=== PATIENT | female | born 1950 | race Caucasian/White ===

== ENCOUNTER 2024-08-25 08:51 | Inpatient (IN) | payer MEDICARE, OTHER, SELFPAY ==
[2024-08-13 08:38] VITALS: BMI 31.0
[2024-08-25] VITALS (12 sets, daily range): BP systolic 89–141; BP diastolic 44–73; PULSE 76–84; RESP 11–18; TEMP 35.6–36.6; O2SAT 94–98; BMI 31.0
--- NOTE | 2024-08-25 | DI.RAD.S_ITS ---
PROCEDURE: XR HIP W PEL IF DONE RT 4V INDICATIONS: RT HIP REVISION TECHNIQUE: 4 fluoroscopic spot images of the pelvis and right hip COMPARISON: None. FINDINGS: Bones: Patient is status post right hip arthroplasty, with hardware components in expected positions. The hip joint appears congruent. The visualized bony structures appear intact. Soft tissues: Overlying postoperative changes are noted. No suspicious soft tissue densities. IMPRESSION: Expected post-operative appearance of a hip arthroplasty. Dictated by: Gordy Kenny M.D. on 08/25/2024 at 22:30 Approved by: Gordy Kenny M.D. on 08/25/2024 at 22:31
--- NOTE | 2024-08-25 | PATH_ITS ---
[facility] Accession Number: [id number] No. of containers..01 Tissue . 01 Material submitted: . hip - RIGHT HIP CAPSULE . 01 Diagnosis: RIGHT HIP CAPSULE, EXCISION: Fragments of fibroconnective tissue with mild chronic inflammation, focal acute inflammation, fibrosis, degenerative changes, occasional hemosiderin-laden macrophages, and reactive/regenerative changes. Negative for atypia or malignancy. MRV 08/27/2024 1815 Local . 01 Electronically signed: . Hilton Nixon MD, Pathologist NPI- [id number] . 01 Gross description: . Received in formalin with two patient identifiers and right hip capsule, are multiple irregular watkins membranous soft tissue fragments, 3.0 x 2.9 x 1.3 cm in aggregate. Sectioning reveals a watkins, rubbery cut surface. Food Product Inspector sections are submitted in A1. ([id number]) /MRV 08/26/2024 1653 Local . 01 Pathologist provided ICD-10: T84.030A . 01 CPT . 125171 Specimen Comment: A courtesy copy of this report has been sent to [facility] Pathology Performed at: [address] [address], [place], [place] [id number] MD Kedar Aparicio MD Phone: [phone]
--- NOTE | 2024-08-25 06:00 | DI.RAD.S_ITS ---
PROCEDURE: XR HIP W PEL IF DONE RT 2V INDICATIONS: yoko TECHNIQUE: AP pelvis and lateral view of the hip acquired. COMPARISON: [facility], CR, XR HIP W PEL IF DONE RT 4V, 08/25/2024, 12:47. FINDINGS: Bones: Patient is status post right hip arthroplasty, with hardware components in expected positions. The hip joint appears congruent. The visualized bony structures appear intact. Hardware within the left hip noted status post total hip arthroplasty without evidence of complication. Soft tissues: Overlying postoperative changes are noted. No suspicious soft tissue densities. IMPRESSION: Expected post-operative appearance of a hip arthroplasty. Dictated by: Gordy Kenny M.D. on 08/25/2024 at 22:42 Approved by: Gordy Kenny M.D. on 08/25/2024 at 22:43
[2024-08-25] MEDS: MELOXICAM 7.5 MG TABLET PO (09:36)
[2024-08-25] MEDS: ACETAMINOPHEN 325 MG TABLET 975 MG PO (09:36)
[2024-08-25] MEDS: LACTATED RINGERS 1,000 ML 42 ML IV ×3 (09:37→15:23)
--- NOTE | 2024-08-25 09:54 | PM.PREOP ---
Pre-operative Note Interval Note History & Physical reviewed/Exam performed by Physician: Yes Changes to H&P: No
[2024-08-25] MEDS: TRANEXAMIC ACID 1,000 MG VIAL 2000 MG INJ ×2 (11:14→15:17)
[2024-08-25] MEDS: CEFAZOLIN 2 GM/100 ML PREMIX 100 ML IV ×3 (11:15→21:23)
--- NOTE | 2024-08-25 11:43 | SUR.OPER ---
Supine on padded [place] table with bilateral legs secured in padded positioning boots and suspended in positioning spars, operative leg in traction per surgeon. Head on one pillow. Arm on non-operative side secured on padded armboard <90 degrees abduction. Arm on operative side padded and resting across chest then secured with tape over sheet. Padded perineal post in place per surgeon.
[2024-08-25] MEDS: VANCOMYCIN 1,000 MG VIAL 1000 MG INTRA-ARTI (14:08)
[2024-08-25] MEDS: GENTAMICIN 240 MG in SODIUM CHLORIDE 0.9% 100 ML 106 MG TOP (14:09)
[2024-08-25] MEDS: ROPIVACAINE/EPI/CLONIDINE/KET 50 ML SYRINGE INJ (15:06)
--- NOTE | 2024-08-25 15:21 | P.OP_ITS ---
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 Right total hip arthroplasty revision with acetabular component exchange in femoral stem retention Same procedure as scheduled: Yes Surgeon: Reymundo Galvez Yeast Culture Operator: Danna Aponte Anesthesia Type: General and Local Operative Notes Estimated Blood Loss (mL): 450 Procedure in detail: Laterality Uncemented Direct Anterior Depuy Total Hip Arthroplasty: Implants: * Mono G7 acetabular cup with 40 mm, 25 mm, 30 mm screws * Size G 46 mm Dual Mobility acetabular liner * 28 mm/46 mm Dual Mobility polyethylene * 28 mm +0 ceramic femoral head?with Titanium sleeve Procedure Summary: This 73-year-old female patient was referred to me by an outside orthopedic surgeon for acetabular bone loss behind the acetabular component of a total hip arthroplasty placed in 2013. She had an MRI showing a fluid collection around the hip and prior to seeing me had had a hip aspiration which came back with no growth on cultures and no organisms on Gram stain. I obtained inflammatory markers which were elevated at an ESR of 63 and a CRP of 14.9. Given the elevated inflammatory markers I attempted a repeat aspiration. This was attempted both radiographically and under ultrasound and both attempts were nicholas ble to obtain any fluid. 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 To evaluate this I obtained metal ion levels which were elevated with a chromium of 2.7 and a cobalt of 2.8. Being unable to obtain fluid for culture despite my repeated attempts I discussed with the patient that her acetabular component clearly warranted exchange and she was symptomatic from it but that I could not definitively say whether this would be a revision for periprosthetic joint infection or for trunnionosis. I therefore recommended a hybrid approach between an aseptic revision and a septic revision. Specifically, should cultures return positive during today's procedure I took the following measures 2 attempts to prevent recurrent infection as much as I could. Specifically: 1. I used a double set up and removed all dirty instruments from the surgical field prior to implanting any definitive components 2. I placed antibiotic laden calcium sulfate pellets in the hip capsule to provide high concentrations of antibiotics. 3. I will have the patient remain in the hospital receiving IV cefazolin until culture result so that if they do result positive I can have a PICC line placed during this admission and arrange for outpatient IV antibiotics With regards to the possibility that was not dealing with infection today in the this was in factor in by trunnionosis as evidenced by the elevated metal ion levels in the use of a cobalt chromium head during the prior surgery, I retained the stem during today's surgery. There is some evidence supporting stem retention during treatment of hip periprosthetic joint infections due to the high morbidity associated with stem removal. That references included below. I did debride the accessible portions of the stem using a Bovie scratch pad during today's procedure and vigorously tested the stem to ensure that it was not loose. Aurelio T, Nazia H, Damion Y, Doe T, Harjinder T, Nunu M, Calvin K. Treatment of periprosthetic hip infection with retention of a well-fixed stem: six to 13- year outcomes. Arthroplasty. 2019 Feb 05;1(1):3. doi: 10.1186/[id number]. PMID: [id number]; PMCID: [id number]. 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 There was diffuse inflammatory tissue throughout the entire hip capsule and I removed as much of this as I was feasibly able to. There was some fluid in the hip capsule which did not definitively look like an abscess but I obtained some of this fluid and sent it along with several tissue specimens for culture. I also sent a pathology specimen to evaluate for possible signs of metallosis. After removing the cup I noted erosive changes in the ilium with bone loss surrounding the screw that was in the cup from the primary surgery. There was also bone loss medially with the acetabular poor exposed after cup removal. I performed reaming and mechanical debridement on the dirty side and then utilize a chemical debridement involving irrigation with 3 L of normal saline through pulse lavage followed by a Betadine soak followed by 3 L of normal saline through pulse lavage followed by a peroxide soak followed by 3 additional L of normal saline. The wound was provisionally closed in the room was entirely turned over. I inserted a 60 mm cup, 2 sizes larger than the original cup. Because of anterior bone loss a somewhat vertical position was necessary to achieve an appropriate pinch fit. I utilized a dual mobility liner to maximize stability as the prior construct had utilize an offset liner and been performed through a posterior approach. I upsized the head by 1 and trialed before implantation to ensure appropriate stability and leg lengths. Procedure in Detail: This patient was seen preoperatively and evaluated for hip pain which was refractory to numerous nonoperative treatment modalities. Their hip pain correlated with radiographic changes demonstrating significant degeneration in the hip joint. The risks and benefits of continued nonoperative management versus operative management were discussed at length and all of the patient?s questions were answered. Additional educational materials providing further details beyond our discussion in clinic were provided via a publicly available patient education video which included the incidence of medical complications associated with total hip arthroplasty, reasons for revision following total hip arthroplasty, and patient satisfaction rates following total hip arthroplasty. That video can be accessed at [email or web address] . With this understanding of the risks inherent to the procedure, the patient elected to move forward with operative management. Following preoperative optimization, the patient was scheduled for surgery. The patient was met in the preoperative holding area the day of the procedure and all questions were answered. The patient?s nares were swabbed with betadine in order to decolonize them from MRSA. Informed consent was signed and the laterality limb was marked with indelible ink.? The patient was brought back to the operating room where anesthesia was induced. The patient was transferred to the [place] table and all bony prominences were padded. The operative site was prepped and draped in the usual sterile fashion. Prior to incision, tranexamic acid and cefazolin were administered. Operative templating images were displayed demonstrating the anticipated implant sizes and correct operative extremity. A timeout procedure was performed verifying the patient?s identity, medical comorbidities, allergies, relevant medications, anesthesia type and the surgical plan. All present were in agreement. The assistance of a physician roofer assistant was required for positioning, room setup, soft tissue retraction and wound closure. Without this assistance, the procedure would have been significantly more challenging and time consuming.?? A direct anterior approach to the hip was utilized. This was performed with a longitudinal incision through a Heuter interval. The incision was planned 2 cm distal and 2 cm lateral to the ASIS extending towards the lateral patella, in line with the muscle body of the TFL. Following incision, the subcutaneous tissue was dissected while taking care to avoid injury to the lateral femoral cutaneous nerve. The fascia overlying the TFL was identified by dissecting off the overlying fat and identifying perforating vessels to the TFL. The TFL fascia was incised and dissected away from the medial border of the TFL. A cobra retractor was placed over the superior femoral neck between the abductors and the hip capsule and used to reflect the TFL laterally. A [place] self-retainer was then placed in the distal aspect of the wound between the TFL and the rectus femoris. This was tensioned to open up the direct anterior interval and the lateral circumflex vessels were identified and coagulated using electrocautery. The floor of the TFL fascia was incised, exposing the pericapsular fat overlying the hip capsule. A second cobra retractor was placed on the inferior femoral neck. A double-bent soft tissue retractor was placed on the anterior wall of the acetabulum and used to tension the reflected head of rectus femoris, which was then released in order to limit soft tissue tension. A capsulotomy was made in the midline of the anterior hip capsule in line with the femoral neck ending at the vastus tubercle. The double-bent retractor was removed in order to limit the amount of time that a soft tissue retractor remained on the anterior wall and protect the femoral nerve. Retractors were placed on the superior and inferior aspects of the prosthetic femoral neck and abundant inflammatory tissue within the hip capsule was noted. I also noted the black discoloration on the trunnion. Removed as much hip capsule as I could in order to debride the area. I sent multiple specimens for culture as well as 1 for pathology to look for evidence of metallosis. I also found a small amount of fluid within the hip capsule and sampled this with a syringe which I also sent for culture. After extensive mechanical debridement of all inflammatory appearing tissue exposed the acetabular component and used the traction table to apply traction to the leg. I impacted the femoral head into the polyethylene to disengaged from the Victor taper and dislocated the hip and then removed the femoral head. Inspection revealed that it was as anticipated a-3 cobalt chromium head. I then removed the polyethylene liner using a pair of osteotomes and removed a single screw. I then used a cup out device to free the cup from the surrounding bone. There was significant bone loss superior laterally but elsewhere it remained well fixed. Noted there was minimal bone remaining attached to the cup after was eventually loosened and removed. Inspection of the acetabulum revealed inflammatory appearing tissue in the area of the bony defect. I sampled this and sent it for culture. That defect was contained. The floor of the acetabular fossa was exposed in the anterior wall was very thin. I initially reamed with a 57 Reamer and then eval uated this fluoroscopically and noted that there was still some room remaining to go up in size so I inserted a 59 Reamer which fit easily into the joint. I therefore planned to utilize a size sixty cup on the clean side. Prior to moving to the clean side brought the hip into hyperextension and adduction and vigorously tested the stem to ensure that it was not loose. It was not loose. I mechanically debrided the exposed portions of the stem using a Bovie pad. There was significant trunnion [place] debris which was removed in this process. I also removed inflammatory tissue from around the femur. I then returned to neutral hip extension and in extensive chemical debridement was undertaken involving 3 L of normal saline interspersed with separate 3 minute soaks of Betadine and peroxide. The wound was provisionally closed and all surgical instruments and dressings were removed from the room. New instruments were brought up, the operating room was cleaned and turned over, and the entire surgical team re-prepped and redraped. Now on the clean side the provisional sutures were removed and the hip was again chemically debrided with a mixture of Betadine and peroxide and copiously irrigated. I replaced the trunnion posterior and lateral to the acetabulum and used pulse lavage to clean the acetabulum. I then introduced the size 60 multi hole cup and positioned it in an appropriate position fluoroscopically. Because of the erosive bony changes particularly to the anterior wall there was minimal pinch fit. I obtained an appropriate position fluoroscopically and then very lightly tapped it into place. I initially attempted to place a screw but this loosen the cup and after repeating the process was able to get the cup to seat long enough to get a screw in place which extended up the ilium. I also placed a 2nd screw in the ilium and an inferior screw extending down towards the ischium. I attempted to place a more medial screw but was not able to obtain any good purchase there and likewise was unable to obtain appropriate purchase with other screw holes which extended up the ilium. I initially had a more medially directed screw in place but fluoroscopic imaging indicated that it was extending out of bone and so that 1 was removed. I placed a dual mobility liner and impacted into place and ensured that it was circumferentially flush. I placed a dual mobility head for a size 0 head on the trunnion and reduced this into the hip joint. Initial trialing was performed with the retained stem and a 28+ 0 head. I initially manually externally rotated the hip and found no instability. I then locked the hip in 45 degrees of external rotation and dropped it to the floor with traction off which demonstrated no instability. An AP pelvis fluoroscopic image matching the preoperative standing radiograph with both lesser trochanters visible and both hips in 40 degrees of external rotation demonstrated equal leg length compared to the other side. AP and lateral hip fluoroscopic images were obtained to evaluate the broach size which demonstrated no obvious signs of loosening of the stem. The hip was dislocated and I returned to the broaching position. Based on my evaluation during initial trialing I planned to place this definitive head. The definitive stem was placed and the trunnion was cleaned and dried. I placed a ceramic head onto the trunnion and impacted it into place on the Victor taper.?? All retractors were removed and the hip was reduced. A dilute mixture of betadine and peroxide was used to bathe the soft tissues during final fluoro scopic assessment. Appropriate component positioning was confirmed on an AP pelvis radiograph with the operative and nonoperative legs in 40 degrees of external rotation, evaluating leg length and offset. Appropriate stem fill was evaluated on AP and lateral hip radiographs. No fractures were identified on these radiographs. There was no hip instability with maximum (115?) external rotation as well as a 45 degree drop test. The hip was copiously irrigated with pulse lavage. Calcium sulfate pellets containing vancomycin and gentamicin were placed inside the capsule. The capsule was closed with absorbable interrupted suture. The TFL fascia was closed with barbed suture while carefully protecting the lateral femoral cutaneous nerve from entrapment. A mixture of Ropivacaine, Epinephrine, Clonidine and Toradol was infiltrated throughout the soft tissues. The skin was closed with 2- 0 and 3-0 sutures. Surgical glue was applied and a soft dressing was placed.??The sponge, instrument and needle counts were reported as being correct at the end of the case.??No obvious complications occurred. The patient was transferred from the [place] table back to a stretcher. The patient emerged from an esthesia without difficulty and was taken to the PACU in a stable condition.? Plan for aftercare: * Anterior hip precautions * Weightbearing as tolerated * Aspirin 81 twice per day for DVT prophylaxis * Cefazolin 2 mg every 8 hours while the patient remained in the hospital * Follow cultures and remain in the hospital until they result so she will be admitted as an inpatient * Anticipate discharge home after cultures result * Multimodal pain regimen with no IV opioids ordered * Apply ice machine to operative hip. Ensure that sufficient ice is in the chamber for the pad to remain cold * Follow up at [facility] in 2 weeks * Detailed postoperative instructions available at [email or web address]
[2024-08-25 16:36] LABS: Add Manual Diff / Slide Review NO; Basophils Absolute Auto 0 /uL (0-100); Basophils Percent Auto 0.1 % (0-2); Eosinophils Absolute Auto 0 /uL (0-450); Hematocrit 25.9 % (36-46); Hemoglobin 8.1 g/dL (12.0-16.0); Lymphocytes Absolute Auto 1200 /uL (1100-4500); Lymphocytes Percent Auto 5.3 % (25-40); Mean Corpuscular HGB Conc 31.3 % (30-36); Mean Corpuscular Hemoglobin 26.9 PG (26-34); Mean Corpuscular Volume 85.8 fL (80-100); Monocytes Absolute Auto 700 /uL (0-900); Monocytes Percent Auto 3.1 % (3-14); Neutrophils Absolute Auto 20000 /uL (1500-7000); Neutrophils Percent Auto 91.5 % (50-75); Platelet Count 564 X10^3/uL (150-400); Red Blood Cell Count 3.01 X10^6/uL (4.0-5.2); Red Cell Distribution Width 15.7 % (11.6-14.8); White Blood Cell Count 21.9 X10^3/uL (4.5-11.0)
[2024-08-25] MEDS: LACTATED RINGERS 1,000 ML 100 ML IV (18:24)
[2024-08-25] MEDS: IBUPROFEN 600 MG TABLET PO (18:25)
[2024-08-25] MEDS: ACETAMINOPHEN 325 MG TABLET 650 MG PO (18:26)
[2024-08-25] MEDS: ONDANSETRON 4 MG/2 ML INJ IV (18:27)
--- NOTE | 2024-08-25 19:47 | PC.NURSE ---
Patient arrives from PACU at 1705 this evening. She is lethargic but easily awakens VSS, afebrile weaned to RA this evening. She reports feeling slightly nauseated and declines dinner this evening. x1 small episode of emesis. She is given zofran PRN. She denies need for pain medications. Aquacel to R hip C/d/i. Continuous pulse ox, frequent monitoring. She last voided at 1030 a.m.
[2024-08-25] MEDS: ONDANSETRON 4 MG ODT PO (21:22)
[2024-08-25] MEDS: PANTOPRAZOLE DR 20 MG TABLET PO (21:24)
[2024-08-25] MEDS: DOCUSATE 100 MG CAPSULE PO (21:24)
[2024-08-25] MEDS: MAGNESIUM OXIDE 400 MG TABLET PO (21:24)
[2024-08-25] MEDS: ASPIRIN EC 81 MG TABLET PO (21:24)
[2024-08-26] VITALS (12 sets, daily range): BP systolic 96–124; BP diastolic 36–57; PULSE 74–90; RESP 15–18; TEMP 35.8–36.7; O2SAT 96–98
[2024-08-26] MEDS: ONDANSETRON 4 MG ODT PO ×3 (01:29→12:04)
[2024-08-26] MEDS: ACETAMINOPHEN 325 MG TABLET 650 MG PO ×4 (01:29→17:42)
[2024-08-26] MEDS: IBUPROFEN 600 MG TABLET PO ×4 (01:30→17:42)
[2024-08-26] MEDS: CEFAZOLIN 2 GM/100 ML PREMIX 100 ML IV ×2 (05:38→17:43)
[2024-08-26 06:09] LABS: Hematocrit 18.3 % (36-46)
--- NOTE | 2024-08-26 06:54 | PC.NURSE ---
Pt pale and nauseated throughout shift, medicated with zofran (see MAR). Pt up and ambulating standby with FWW to bathroom, pain 3/10 at max. Morning labs called @ 0605 with critical value of H/H of 6.0/18.3 (down from 8.1/25.0 immediately post-op) Charge Nurse Li Spencer and provider Dr. Galvez made aware. Type and Screen ordered, blood consent signed and in chart, and 1 u PRBC ordered.
--- NOTE | 2024-08-26 08:21 | P.PN_ITS ---
Subjective Subjective Date Patient Seen: 08/26/24 Time Patient Seen: 08:21 Interval history: Patient found resting comfortably in bed. States that she has had episodes of vomiting during the night. Patient states that she has had no bowel movement yet. Able to ambulate with assistance to the commode. Says she is frequently constipated due to iron intake. She has not required any oxycodone for pain relief. Patient's pain is controlled with oral medication. ?Pain is localized to surgical site. ?Patient declines any new numbness or tingling at the surgical extremity, but some decreased sensation about surgical site. Has had episodes of light-headedness, nausea, vomiting.?Patient denies any shortness of breath, dizziness, fever or chills. Exam Vital Signs (past 8 hours): - 08/26/24 04:00 Temperature 96.8 F L Pulse Rate 82 Respiratory Rate 18 Blood Pressure 112/47 L Pulse Oximetry 96 Oxygen Flow Rate 2 Oxygen Delivery Method Nasal Cannula Oxygen Flow Rate 2 Narrative Exam Narrative: 5/5 strength in quadriceps, hamstrings, DF, PF, EHL bilaterally. Sensation to light touch intact throughout BLE. Calves soft, compressible, nontender. Dressing placed intraoperatively CDI. SCDs found off Objective Labs 08/26/24 04:40 Labs: Laboratory Results - last 24 hr 08/25/24 08/26/24 08/26/24 16:09 04:40 06:20 WBC 21.9 H RBC 3.01 L Hgb 8.1 L 6.0 L* Hct 25.9 L 18.3 L* MCV 85.8 MCH 26.9 MCHC 31.3 RDW 15.7 H Plt Count 564 H Neut % (Auto) 91.5 H Lymph % (Auto) 5.3 L [place] % (Auto) 3.1 Eos % (Auto) 0.0 L Baso % (Auto) 0.1 Neut # (Auto) 76369 H Lymph # (Auto) 1200 [place] # (Auto) 700 Eos # (Auto) 0 Baso # (Auto) 0 Blood Type O Positive Antibody Screen Negative Crossmatch See Detail [facility] Medical History (Updated 08/26/24 @ 11:56 by Hemal Ding PA-C) Abscess History of cardioversion (2010) A-fib (2010) Schatzki's ring Avascular necrosis Bladder cystocele GERD (gastroesophageal reflux disease) Osteoarthritis Iron (Fe) deficiency anemia Surgical History (Updated 08/13/24 @ 10:50 by Jahaira Bey RN) History of carpal tunnel release of both wrists History of total right knee replacement (2008) History of total left hip arthroplasty (04/2019) Hx of bladder repair surgery Hx of cholecystectomy History of total right hip arthroplasty (12/2013) Social History household members: spouse Smoking Status: Never smoker alcohol intake: current Assessment & Plan Post-op Assessment and plan (1) Anemia: Assessment and Plan narrative: 1) Status post Revision total hip arthroplasty with acetabular component exchange 2) Anemia Postoperative Procedures: Procedures Operation Date: 08/25/24 10:45 Actual Procedure Side Surgeon p Revision total hip arthroplasty with acetabular component exchange Right Reymundo Galvez MD Postoperative day: 1 Postoperative status: doing well and anemia Postoperative status narrative: Hemoglobin [address] Galvez notified by nursing staff. Ordered 1 unit of pRBC. Postoperative plan: routine post-op care and ambulate Postoperative plan narrative: Blood transfusion ordered. Monitor today repeat H&H tomorrow. Anterior hip precautions Weightbearing as tolerated Ambulate with PT when medically appropriate. Aspirin 81 twice per day for DVT prophylaxis SCDs on and running when patient is in bed. Cefazolin 2 mg every 8 hours while the patient remained in the hospital Follow cultures and remain in the hospital until the results are reported. Anticipate discharge home after cultures result Multimodal pain regimen with no IV opioids ordered Apply ice machine to operative hip. Ensure that sufficient ice is in the chamber for the pad to remain cold Follow up at [facility] in 2 weeks Time Spent With Patient Time with patient: 15-24 minutes Quality VTE Deep Vein Thrombosis/Pulmonary Embolism Present on Admission: No
[2024-08-26] MEDS: CHOLECALCIFEROL (VITAMIN D3) 1,000 UNIT TABLET 1000 UNIT PO (09:59)
[2024-08-26] MEDS: PANTOPRAZOLE DR 20 MG TABLET PO ×2 (10:00→21:11)
[2024-08-26] MEDS: DOCUSATE 100 MG CAPSULE PO ×2 (10:00→21:11)
[2024-08-26] MEDS: METOPROLOL ER 25 MG TABLET PO (10:00)
[2024-08-26] MEDS: ASPIRIN EC 81 MG TABLET PO ×2 (10:01→21:12)
[2024-08-26] MEDS: FERROUS SULFATE 325 MG TABLET PO (10:01)
[2024-08-26] MEDS: OXYCODONE IR 5 MG TABLET PO ×2 (10:20→19:03)
--- NOTE | 2024-08-26 10:22 | PM.PN.1 ---
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 PAST SURGICAL HISTORY - Isolated acetabular component exchange performed by me. See operative note for details SUBJECTIVE The patient reports feeling nauseous, which she associates with postoperative anemia. She mentioned that once blood is infused, her nausea typically improves as she has had similar issues in the past. Her pain is well controlled and she has had no acute issues other than the nausea and some prolonged drowsiness postoperatively PHYSICAL EXAM Constitutional: Patient is alert and oriented, engaging in conversation. Musculoskeletal: Post-operative examination of the hip shows good mobility with no shadow drainage. There is a presence of some ecchymosis adjacent to the incision and some swelling. Intact femoral and sciatic nerve function. ASSESSMENT - POD1 from isolated acetabular component exchange PLAN - Follow culture results - Receiving 1 U pRBC for Hgb 6.0. Reevaluate Hgb after transfusion - Continue with nausea/vomitting treatment. Monitor for improvement in nausea with blood transfusion. - WBAT with anterior hip precautions - Continue ancef DISPOSITION To remain in the hospital until cultures result Exam Vital Signs (past 8 hours): - 08/26/24 04:00 08/26/24 08:20 08/26/24 10:00 Temperature 96.8 F L 97 F L Pulse Rate 82 90 Respiratory Rate 18 15 Blood Pressure 112/47 L 108/49 L 108/49 L Pulse Oximetry 96 96 Oxygen Flow Rate 2 Oxygen Delivery Method Nasal Cannula Oxygen Flow Rate 2 Objective Labs 08/26/24 04:40 Labs: Laboratory Results - last 24 hr 08/25/24 08/26/24 08/26/24 16:09 04:40 06:20 WBC 21.9 H RBC 3.01 L Hgb 8.1 L 6.0 L* Hct 25.9 L 18.3 L* MCV 85.8 MCH 26.9 MCHC 31.3 RDW 15.7 H Plt Count 564 H Neut % (Auto) 91.5 H Lymph % (Auto) 5.3 L [place] % (Auto) 3.1 Eos % (Auto) 0.0 L Baso % (Auto) 0.1 Neut # (Auto) 50204 H Lymph # (Auto) 1200 [place] # (Auto) 700 Eos # (Auto) 0 Baso # (Auto) 0 Blood Type O Positive Antibody Screen Negative Crossmatch See Detail [facility] Medical History (Updated 08/13/24 @ 10:50 by Jahaira Bey, RN) Abscess History of cardioversion (2010) A-fib (2010) Schatzki's ring Avascular necrosis Bladder cystocele GERD (gastroesophageal reflux disease) Osteoarthritis Iron (Fe) deficiency anemia Surgical History (Updated 08/13/24 @ 10:50 by Jahaira Bey, RN) History of carpal tunnel release of both wrists History of total right knee replacement (2008) History of total left hip arthroplasty (04/2019) Hx of bladder repair surgery Hx of cholecystectomy History of total right hip arthroplasty (12/2013) Social History household members: spouse Smoking Status: Never smoker alcohol intake: current Assessment & Plan Time-Based Coding :: [TOTAL MINUTES] spent with patient and on the chart (including review of chart, obtaining history, exam, reviewing outside data, placing orders, documenting exam and treatment plan, and counseling patient) on [DATE]. Quality VTE Deep Vein Thrombosis/Pulmonary Embolism Present on Admission: No
--- NOTE | 2024-08-26 11:38 | OT.IPNOTE ---
Hold OT eval, pt to get blood due to low HH.
--- NOTE | 2024-08-26 12:03 | CM.DANOTE ---
Initial DCP Assessment Note Pt is a 73 yo female, resident of [place] , s/p isolated acetabular component exchange by Dr Galvez. PCP: Art Luong Payer: REYNALDO/Arnulfo Reviewed chart, pt discussed in multidisciplinary rounds this morning. Plan is for continued INPT admission in the hospital until culture results return. Patient is ambulating well, H+H is low and patient has received blood transfusion. Therapies will be on hold while H+H is low. Patient lives independently w/sp in [facility], patient is a retired OB nurse. Patient has planned for return home w/sp to assist. Outpatient therapies. CM team will plan to follow clinical course closely in case any DC needs or concerns arise. BLANCO Chance Discharge Planning/Care Management CM Discharge Assessment Start: 08/26/24 12:02 Freq: Status: Active Protocol: Document 08/26/24 12:02 KELLEY (Rec: 08/26/24 12:03 KELLEY [id number]) Discharge Planning Assessment Assigned Computer Engineering Technician BLANCO Membreno DPOA/Assigned Designee Name Rogelio Palomo ? P . Advance Directives? Yes Advance Directives on File No History Provided By Patient,Medical Record Prior Living Arrangements House Household Members spouse Type of transporation used prior to Drives own vehicle admit Independent with ADL's Yes Is patient alert and oriented? Yes Patient/Family Preference OP PT Therapy Barriers to Discharge No Discharge Plan Home Transportation Arrangement Family Referrals Initiated None needed
--- NOTE | 2024-08-26 12:31 | PT-IP ANOTE ---
PT eval received and EMR reviewed. pt with Hgb of 6 and hct: 18.3. checked with nurse and pt receiving blood transfusion. PT eval on hold. will f/u.
[2024-08-26 13:40] LABS: Hemoglobin 6.7 g/dL (12.0-16.0)
[2024-08-26 13:41] LABS: Hematocrit 20.3 % (36-46)
[2024-08-26] MEDS: CYCLOBENZAPRINE 10 MG TABLET 5 MG PO ×2 (14:58→21:11)
--- NOTE | 2024-08-26 15:46 | PT-IP ANOTE ---
pt's H&H continues to be low after blood transfusion. will hold PT today.
[2024-08-26 18:39] LABS: Hematocrit 24.4 % (36-46)
[2024-08-26] MEDS: MAGNESIUM OXIDE 400 MG TABLET PO (21:10)
[2024-08-27] VITALS (8 sets, daily range): BP systolic 97–121; BP diastolic 39–57; PULSE 71–86; RESP 16–18; TEMP 35.8–36.6; O2SAT 95–97
[2024-08-27] MEDS: IBUPROFEN 600 MG TABLET PO ×4 (00:42→16:38)
[2024-08-27] MEDS: ACETAMINOPHEN 325 MG TABLET 650 MG PO ×4 (00:42→16:38)
[2024-08-27] MEDS: CEFAZOLIN 2 GM/100 ML PREMIX 100 ML IV ×3 (00:42→16:39)
[2024-08-27] MEDS: OXYCODONE IR 5 MG TABLET PO ×2 (03:00→21:58)
[2024-08-27 04:31] LABS: Hemoglobin 7.1 g/dL (12.0-16.0)
[2024-08-27] MEDS: CYCLOBENZAPRINE 10 MG TABLET 5 MG PO ×2 (05:57→21:58)
--- NOTE | 2024-08-27 07:58 | P.PN_ITS ---
Subjective Subjective Date Patient Seen: 08/27/24 Time Patient Seen: 07:58 Interval history: Patient's pain is controlled with oral medication. ?Pain is localized to surgical site. ?Patient declines any new numbness or tingling at the surgical extremity. ?Patient denies any shortness of breath, dizziness, light-headedness, fever or chills. Patient has not vomited since yesterday morning. Still feels episodes of nausea. She has not had a bowel movement yet but has not eaten much. Exam Vital Signs (past 8 hours): - 08/27/24 04:00 Temperature 96.4 F L Pulse Rate 75 Respiratory Rate 17 Blood Pressure 106/39 L Pulse Oximetry 95 Oxygen Flow Rate 0 Oxygen Delivery Method Room Air Oxygen Flow Rate 0 Narrative Exam Narrative: Patient found standing and ambulating with walker and nursing assistance. 5/5 strength in quadriceps, hamstrings, DF, PF, EHL bilaterally. Sensation to light touch intact throughout BLE. Calves soft, compressible, nontender. Dressing placed intraoperatively CDI. No signs of ecchymosis or hematoma palpated about surgical site. Const General: cooperative, healthy appearing and comfortable Resp Effort & Inspection: normal respiratory effort and able to speak in complete sentences Objective Labs 08/27/24 03:40 Labs: Laboratory Results - last 24 hr 08/26/24 08/26/24 08/26/24 06:20 13:19 18:33 Hgb 6.7 L* 8.0 L Hct 20.3 L* 24.4 L Blood Type O Positive Antibody Screen Negative Crossmatch See Detail 08/27/24 03:40 Hgb 7.1 L Hct 21.0 L Blood Type Antibody Screen Crossmatch [facility] Medical History (Updated 08/26/24 @ 11:56 by Hemal Ding PA-C) Abscess History of cardioversion (2010) A-fib (2010) Schatzki's ring Avascular necrosis Bladder cystocele GERD (gastroesophageal reflux disease) Osteoarthritis Iron (Fe) deficiency anemia Surgical History (Updated 08/13/24 @ 10:50 by Jahaira Bey RN) History of carpal tunnel release of both wrists History of total right knee replacement (2008) History of total left hip arthroplasty (04/2019) Hx of bladder repair surgery Hx of cholecystectomy History of total right hip arthroplasty (12/2013) Social History household members: spouse Smoking Status: Never smoker alcohol intake: current Assessment & Plan Post-op Postoperative Procedures: Procedures Operation Date: 08/25/24 10:45 Actual Procedure Side Surgeon p Revision total hip arthroplasty with acetabular component exchange Right Reymundo Galvez MD Postoperative day: 2 Postoperative status: doing well and anemia Postoperative status narrative: H&H downward trendin.0/24.4 @ 18:33 2/19. Today 08/27 7.1/21.0 @ 03:40. Notified Dr. Galvez of lab results and patient's exam. Recommends repeat PRBC and continue to monitor until patient is hemodynamically stable and wound cultures come back. Postoperative plan: routine post-op care Postoperative plan narrative: pRBC, 1 unit ordered. Monitor today repeat H&H tomorrow. Anterior hip precautions Weightbearing as tolerated Ambulate with PT when medically appropriate. Aspirin 81 twice per day for DVT prophylaxis SCDs on and running when patient is in bed. Cefazolin 2 mg every 8 hours while the patient remained in the hospital Follow cultures and remain in the hospital until the results are reported. Anticipate discharge home after cultures result Multimodal pain regimen with no IV opioids ordered Apply ice machine to operative hip. Ensure that sufficient ice is in the chamber for the pad to remain cold Follow up at [facility] in 2 weeks Time Spent With Patient Time with patient: 15-24 minutes Quality VTE Deep Vein Thrombosis/Pulmonary Embolism Present on Admission: No
[2024-08-27] MEDS: polyethylene glycoL 3350 17 GM POWD.PACK PO (08:50)
[2024-08-27] MEDS: METOPROLOL ER 25 MG TABLET PO (08:50)
[2024-08-27] MEDS: DOCUSATE 100 MG CAPSULE PO ×2 (08:50→21:58)
[2024-08-27] MEDS: PANTOPRAZOLE DR 20 MG TABLET PO ×2 (08:53→21:58)
[2024-08-27] MEDS: CHOLECALCIFEROL (VITAMIN D3) 1,000 UNIT TABLET 1000 UNIT PO (08:53)
[2024-08-27] MEDS: FERROUS SULFATE 325 MG TABLET PO (08:53)
[2024-08-27] MEDS: ASPIRIN EC 81 MG TABLET PO ×2 (08:53→21:58)
--- NOTE | 2024-08-27 10:22 | PT-IP ANOTE ---
Pt Hgb 7.1 this a.m. and pt getting ready to receive blood. She has been up this morning and just got back to bed. Will check back for mobility after pt receives blood.
--- NOTE | 2024-08-27 10:28 | OT.IPNOTE ---
Hold OT , pt to get another unit of blood.
--- NOTE | 2024-08-27 13:21 | PT.IIE ---
Current Diagnoses Anemia, unspecified (08/25/24) Mechanical loosening of internal right hip prosthetic joint, initial encounter (08/25/24) Surgery Performed Operation Date: 08/25/24 10:45 Actual Procedures p Revision total hip arthroplasty with acetabular component exchange (Right) - Reymundo Galvez MD Surgical History (Last Updated 08/13/24 @ 10:50 by Jahaira Bey, RN) History of carpal tunnel release of both wrists History of total left hip arthroplasty (04/2019) History of total right hip arthroplasty (12/2013) History of total right knee replacement (2008) Hx of bladder repair surgery Hx of cholecystectomy Medical History (Last Updated 08/13/24 @ 10:50 by Jahaira Bey, RN) A-fib (2010) Abscess Avascular necrosis Bladder cystocele GERD (gastroesophageal reflux disease) History of cardioversion (2010) Iron (Fe) deficiency anemia Osteoarthritis Schatzki's ring Physical Therapy Inpatient Evaluation/Re-Eval M1 PT/OT-IP Prior Functional Status Start: 08/27/24 08:06 Freq: NEEDED Status: Active Protocol: Document 08/27/24 12:38 MB (Rec: 08/27/24 13:21 MB [id number]) Medical Review Prior Functional Status Medical History Reviewed Yes Diet/Fluid Consistency Regular Communication WNLs Mobility and Gait Mod I with RW Activities of Daily Living and IADL's Mod I Social History Household Members spouse Living Arrangements House Number of Floors (Floors) One Floor Number of Stairs To Enter/Railing? 1 step and no rail to enter Home Environment High Toilet,Walk in Shower,Tub /Shower Home Equipment Front Wheel Walker,Raised Toilet Seat w/Armrests,Tub Transfer Bench,Hand Held Shower,Grab Bars Near Toilet, Grab Bars In Shower Employment Status Retired M2 PT-IP Current Condition Start: 08/27/24 08:06 Freq: NEEDED Status: Active Protocol: Document 08/27/24 12:38 MB (Rec: 08/27/24 13:21 MB [id number]) Physical Therapy Current Condition Current Condition Evaluation Date 08/27/24 Treatment Diagnosis Right acetabular component loosening, right EPIFANIO revision, anterior M3 PT-IP Subjective Start: 08/27/24 08:06 Freq: NEEDED Status: Active Protocol: Document 08/27/24 12:38 MB (Rec: 08/27/24 13:21 MB [id number]) Subjective Physical Therapy Visit Type Type Initial Evaluation Visit Start Time 12:38 Visit Stop Time 13:08 Number of SLIPCOVER CUTTER Visits 0 Physical Therapy Visit Comments Patient Comments Pt finishing lunch, up in chair, 1 unit PRBCs finishing as well, nsg and pt agreeable for pt to mobilize. Therapy Pain Assessment Pain When Pain Assessed At Rest Pain Present Pain Present Pain Reported Location Right Hip Intensity 3 Scale Used Numeric (0 - 10) M4 PT-IP Mobility and Gait Start: 08/27/24 08:06 Freq: NEEDED Status: Active Protocol: Document 08/27/24 12:38 MB (Rec: 08/27/24 13:21 MB [id number]) PT-Bed Mobility Assessment Rolling Type of Rolling Roll to Right,Roll to Left Level of Assist Standby Assistance Supine to Sit Supine to Sit Standby Assistance,Head of Bed Elevated Sit to Supine Sit to Supine Standby Assistance Scooting Scooting to Edge of Bed Standby Assistance PT-Transfer Assessment Sit to and From Stand Sit to and from Stand Standby Assistance,1 Person Assistance,Use of Upper Extremities Equipment Transfer Assistive Device Gait Belt,Front Wheeled Walker Orthotic/Prosthetic Devices or Brace: No Transfers Transfer Destination Bed,Chair Transfer Technique Ambulation Transfer Ability Level of Assist Standby Assistance,1 Person Assistance,Use of Upper Extremities Gait Assessment Gait Gait Assistance Required: Standby Assistance Distance (Feet) 100 Able to Maintain Weight Bearing Status Yes During Gait Assistive Devices Assistive Device Gait Belt,Front Wheeled Walker Orthotic/Prosthetic Devices or Brace: No Gait Deviations General Gait Pattern Antalgic,Decreased Stride Length,Flexed Trunk,Step-to Gait,Wide Based Gait Factors Limiting Gait Function Factors Limiting Gait Function Decreased Strength,Limited Range of Motion,Pain Stair Climbing Assessment Evaluation Level of Assist On Stairs Standby Assistance,1 Person Assistance Devices Stair Climbing Assistive Devices Front Wheel Walker Technique/Endurance Stair Climbing Direction Ascend and Descend Stair Climbing Technique Step to Step Number of Steps Climbed 1 Query Text: Stair Climbing Set # Repetitions (reps) 1 Comments Stair Climbing Comments Use of RW and ascend forward and descend forward PT-Balance Assessment Sitting Balance and Reactions Static Sitting Balance Ability Normal Dynamic Sitting Balance Ability Normal Standing Balance and Reactions Static Standing Balance Ability Good Dynamic Standing Balance Ability Good Device Used RW M5 PT-IP Objective Assessments Start: 08/27/24 08:06 Freq: NEEDED Status: Active Protocol: Document 08/27/24 12:38 MB (Rec: 08/27/24 13:21 MB [id number]) Orientation Orientation/Cognition Level of Alertness Alert Orientation Name,Birthday Language Function Ability No Deficits Noted Safety Awareness Understands Safety Issues Memory Description No Deficits Noted Gross Range of Motion Upper Extremity ROM Impairments Defer to OT Lower Extremity ROM Assessment Right Impaired Strength Lower Extremity Strength Assessment Right Impaired Comments Strength Comments RLE not MMT but functional for mobility Coordination Assessment Gross Coordination Gross Coordination Impaired Assessment Coordination Comments Slow mobility RLE post-op Sensation Assessment Comments Sensation Comments Denies paresthesias Muscle Tone Muscle Tone WNL Yes M6 PT-IP Treatment Start: 08/27/24 08:06 Freq: NEEDED Status: Active Protocol: Document 08/27/24 12:38 MB (Rec: 08/27/24 13:21 MB [id number]) Physical Therapy Treatment Exercises Exercises Ankle Pumps,Heel Slides Education Education Provided Precautions,Weight Bearing Status,Post-Op Packet,Safety Other Treatments Other Treatment Performed Provided post-op packet, ed pt in exercises, practiced stair training, pt has OPPT set-up next week and her goal is to d /c home with who is in room during treatment and who has taken care of her in the past after orthopedic surgery. They plan to use her tub shower with tub bench on d/c home, to assist M7 PT-IP Assessment and Plan Start: 08/27/24 08:06 Freq: NEEDED Status: Active Protocol: Document 08/27/24 12:38 MB (Rec: 08/27/24 13:21 MB [id number]) PT Summary Assessment and Plan Potential Rehabilitation Potential Good Status of Condition at Evaluation Evolving Summary Impairments Pain,ROM,Strength,Balance, Coordination,Bed Mobility, Transfers,Gait,Activity Tolerance Progress Towards Goals Progressing Toward Goals Assessment Summary Pt is a 73 y/o female adm for right EPIFANIO revision, anterior approach, after acetabular loosening. She had low Hgb post-op and finished unit of 1 PRBC before assessment today: pt up in chair with nsg and finishing eating. She is SBA for transfers, bed mobility, gait with RW and 1 step stair training and nearby for treatment. Functionally, she looks great. Medical issue of low Hgb is biggest issue. She hopes to d/c home with assistance and OPPT scheduled for next week. Goals Bed Mobility Goal Independent Transfer Goal Independent,Front Wheeled Walker Gait Goal Independent,Front Wheel Walker Gait Distance 150 Other Goals Ascend and descend one step with RW and mod I. Days to Meet Goals 5 Frequency of Treatment Frequency Of Treatment Once a Day Other frequency x1 Treatment Plan Physical Therapy Treatment Plan Bed Mobility Training,Transfer Training,Gait Training, Therapeutic Exercise,Balance Retraining,Post Op Education, Discharge Planning,Hot or Cold Pack,Neuromuscular Re-ed, Coordination Retraining,Manual Therapy Precautions Other Precautions No hyperextension right hip Weight Bearing Status Weight Bearing Status Weight Bear as Tolerated Recommendations To Nursing Amount of Assist Needed Standby Assistance Discharge Recommendations PT Discharge Recommendations Home with Assistance, Outpatient PT Transportation Needs at Discharge Private Vehicle
--- NOTE | 2024-08-27 15:07 | OT.IPNOTE ---
Attempted OT eval and pt has no needs, has all ADL equipment and a supportive to assist. Pt's main barriers is her low HH. Discharge pt OT eval.
[2024-08-27] MEDS: MAGNESIUM OXIDE 400 MG TABLET PO (21:58)
[2024-08-28] MEDS: IBUPROFEN 600 MG TABLET PO ×2 (00:25→06:25)
[2024-08-28] MEDS: ACETAMINOPHEN 325 MG TABLET 650 MG PO ×2 (00:25→06:25)
[2024-08-28] MEDS: CEFAZOLIN 2 GM/100 ML PREMIX 100 ML IV ×2 (00:45→09:35)
[2024-08-28 04:35] VITALS: BP 120/52; PULSE 66; RESP 18; TEMP 36.2; O2SAT 97
[2024-08-28 05:21] LABS: Hematocrit 25.5 % (36-46); Hemoglobin 8.6 g/dL (12.0-16.0)
[2024-08-28] MEDS: CYCLOBENZAPRINE 10 MG TABLET 5 MG PO (06:25)
--- NOTE | 2024-08-28 08:30 | P.DS_ITS ---
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 She had an MRI showing a fluid collection around the hip and prior to seeing me had had a hip aspiration which came back with no growth on cultures and no organisms on Gram stain. Dr Galvez obtained inflammatory markers which were elevated at an ESR of 63 and a CRP of 14.9. Given the elevated inflammatory markers Dr Galvez attempted a repeat aspiration. This was attempted both radiographically and under ultrasound and both attempts were unable to obtain any fluid. 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 To evaluate this Dr Galvez obtained metal ion levels which were elevated with a chromium of 2.7 and a cobalt of 2.8. Being unable to obtain fluid for culture despite my repeated attempts Dr Galvez discussed with the patient that her acetabular component clearly warranted exchange and she was symptomatic from it but that Dr Galvez could not definitively say whether this would be a revision for periprosthetic joint infection or for trunnionosis. I therefore recommended a hybrid approach between an aseptic revision and a septic revision. Discharge Providers Provider Date of admission: 08/25/24 08:51 Discharge Date: 08/28/24 Primary care physician: Bk Lora MD Consults: 08/24/24 09:27 Consult to Anesthesiology Routine Comment: Consulting Provider: Anesthesiologist Reason for consultation: Regional block for post operative pain control 08/25/24 17:26 Consult to Discharge Planning Routine Comment: Consult to Occupational Therapy Evaluate & Treat Comment: Physician Instructions: Evaluate and treat Consult to Physical Therapy Evaluate & Treat Comment: Physician Instructions: post op EPIFANIO protocol Discharge provider: Hemal Ding PA-C Summary Hospital Course Discharge Diagnosis: 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 Right total hip arthroplasty revision with acetabular component exchange in femoral stem retention Same procedure as scheduled: Yes Surgeon: Reymundo Galvez Plastic Duplicator: Danna Aponte Anesthesia Type: General and Local Operative Notes Estimated Blood Loss (mL): 450 Procedure in detail: Laterality Uncemented Direct Anterior Depuy Total Hip Arthroplasty: Implants: * Mono G7 acetabular cup with 40 mm, 25 mm, 30 mm screws * Size G 46 mm Dual Mobility acetabular liner * 28 mm/46 mm Dual Mobility polyethylene * 28 mm +0 ceramic femoral head?with Titanium sleeve * Patient developed postoperative anemia. Required 2 packets of RBCs to reinstate anemia and hospital monitoring requiring 3 midnight stay. Patient has been able to mobilize with physical therapy and pain has been controlled through multimodal medications. Status at Discharge Cognitive/behavioral status at discharge: oriented Functional status at discharge: uses cane/walker Overall status at discharge: patient is back to baseline Time Spent with Patient Time spent: Less than 30 minutes Exam Vital Signs (past 8 hours): - 08/28/24 04:35 Temperature 97.1 F L Pulse Rate 66 Respiratory Rate 18 Blood Pressure 120/52 L Pulse Oximetry 97 Oxygen Flow Rate 0 Oxygen Delivery Method Room Air Oxygen Flow Rate 0 Narrative Exam Narrative: Patient's pain is controlled with oral medication. ?Pain is localized to surgical site. ?Patient declines any new numbness or tingling at the surgical extremity. ?Patient denies any shortness of breath, dizziness, light-headedness, nausea, vomiting, fever or chills. 5/5 strength in hip flexors, quadriceps, hamstrings, DF, PF, EHL bilaterally. Sensation to light touch intact throughout BLE. Calves soft, compressible, nontender. Dressing placed intraoperatively CDI. Resp Effort & Inspection: normal respiratory effort and able to speak in complete sentences Objective Labs 08/28/24 04:43 Labs: Laboratory Results - last 24 hr 08/26/24 08/28/24 06:20 04:43 Hgb 8.6 L Hct 25.5 L Blood Type O Positive Antibody Screen Negative Crossmatch See Detail [facility] Medical History (Updated 08/26/24 @ 11:56 by Hemal Ding PA-C) Abscess History of cardioversion (2010) A-fib (2010) Schatzki's ring Avascular necrosis Bladder cystocele GERD (gastroesophageal reflux disease) Osteoarthritis Iron (Fe) deficiency anemia Surgical History (Updated 08/13/24 @ 10:50 by Jahaira Bey RN) History of carpal tunnel release of both wrists History of total right knee replacement (2008) History of total left hip arthroplasty (04/2019) Hx of bladder repair surgery Hx of cholecystectomy History of total right hip arthroplasty (12/2013) Social History household members: spouse Smoking Status: Never smoker alcohol intake: current Discharge Assessment & Plan Assessment and Plan Assessment: Status post Right total hip arthroplasty revision with acetabular component exchange in femoral stem retention Postoperative anemia Plan of Treatment: H and H has stabilized this morning is 8.6/25.5. Patient has been able to have a bowel movement and ambulate with assistance a walker throughout the hospital floor. Discharge to home. ? Anterior Hip Pre-cautions. Ambulate and weight bear as tolerated with assistive devices. ? Aspirin 81 mg twice a day for 4 weeks for DVT prevention. ? Baseline pain relief with acetaminophen 1000mg every 8 hours as needed and meloxicam 7.5 mg b.i.d.. ?Patient has been prescribed oxycodone 5 mg every 4 ?hours as needed for breakthrough pain. ? For postoperative infection prophylaxis prescribed cefadroxil 500 mg b.i.d. for 2 weeks. Initiate physical therapy in the next 5-10 days. ? Keep dressing clean and dry. Keep dressing on until first office visit. If dressing becomes dirty or disrupted, replace with appropriate sized dressing. Follow up in clinic in 2 weeks for wound check. Contact clinic if there are any questions or concerns. Discharge Plan Discharge Plan Patient Disposition: Home Provider Discharge Comment: Pt has postop oxycodone and other meds at home. Discharge orders & Medications Prescriptions: New aspirin 81 mg Tablet,Delayed Release (Dr/Ec) 81 mg PO BID Qty: 60 0RF Continued omeprazole 20 mg Capsule,Delayed Release(Dr/Ec) 20 mg PO BID metoprolol succinate 25 mg Tablet Extended Release 24 Hr 25 mg PO DAILY ferrous sulfate 325 mg (65 mg iron) Tablet,Delayed Release (Dr/Ec) 325 mg PO TID cholecalciferol (vitamin D3) [Vitamin D3] 25 mcg (1,000 unit) Tablet 50 mcg PO DAILY magnesium 250 mg Tablet 500 mg PO BEDTIME docusate sodium 100 mg Tablet 100 mg PO DAILY Changed acetaminophen [Tylenol Extra Strength] 500 mg Tablet 1,000 mg PO Q8H PRN (Reason: Hip pain.) Qty: 180 0RF Discontinued ibuprofen 200 mg Tablet 400 mg PO Q6H PRN (Reason: Hip pain.) Follow up/Referrals: Bk Lora MD [Primary Care Provider] - Diet/Activity/Treatments Diet: Diet as Tolerated Activity: Weightbearing as tolerated. Anterior hip precautions. Cold/Heat Therapy: Ice to hip as needed for pain. Skin/Wound/Dressing Care Report to your healthcare provider any signs of infection, such as:: chills, fever, night sweats, unusual drainage and unusual redness Dressing: May shower. Leave dressing in place until follow up in office. No bathing or otherwise soaking incision. Call the office if the dressing becomes saturated inside. Visit Report/Discharge Packet Instructions: DI for Hip Replacement Stand Alone Forms: Patient Portal/API, Stroke Signs & Symptoms, Surgery Discharge Discharge Data Primary Care Provider: Bk Lora VTE Deep Vein Thrombosis/Pulmonary Embolism Present on Admission: No
--- NOTE | 2024-08-28 09:19 | CM.DPNOTE ---
DC Note Patient has been discharged home today with recommendation for close outpatient follow up. Therapies have cleared patient for this plan. No barriers identified to safe return home w/sp to assist as needed. No SW needs. JW
[2024-08-28] MEDS: ASPIRIN EC 81 MG TABLET PO (09:35)
[2024-08-28 09:36] VITALS: BP 120/52; PULSE 66
[2024-08-28] MEDS: CHOLECALCIFEROL (VITAMIN D3) 1,000 UNIT TABLET 1000 UNIT PO (09:36)
[2024-08-28] MEDS: PANTOPRAZOLE DR 20 MG TABLET PO (09:36)
[2024-08-28] MEDS: FERROUS SULFATE 325 MG TABLET PO (09:36)
[2024-08-28] MEDS: METOPROLOL ER 25 MG TABLET PO (09:36)
[2024-08-28] MEDS: DOCUSATE 100 MG CAPSULE PO (09:36)
--- NOTE | 2024-08-29 09:37 | P.PN_ITS ---
Subjective Subjective Interval history: Lea's culture results this morning showed very scant growth of a GPC on two of the specimens. The others have shown no growth. I spoke to one of the laboratory technicians who clarified that the growth is very minimal and is not consistent with staphylococci or streptococcus. It has required culturing in both anaerobic and aerobic medium to appear. The specimens have been sent out for more detailed analysis at [facility]. At this juncture it is unclear if this represents a contaminant or a positive culture. In anticipation of this possibility, I utilized a double-setup surgery in which I broke down the entire surgical field after extracting Lea's acetabular component in order to maximally reduce bioburden. I also placed dissolvable calcium sulfate pellets in her hip capsule which are currently eluting high concentrations of vancomycin and gentamicin. She is additionally taking Cefadroxil orally. If we do determine that this is a positive culture result, I would coordinate with infectious disease to transition her to a longer-term antibiotic regimen, likely involving PICC line placement for a course of IV antibiotics. I have requested that the microbiology lab call me on my personal device as soon as we have determined whether this is a positive or negative result. Exam Vital Signs (past 8 hours): Oxygen Delivery Method Room Air Oxygen Flow Rate 0 Objective Labs 08/28/24 04:43 [facility] Medical History (Updated 08/26/24 @ 11:56 by Hemal Ding PA-C) Abscess History of cardioversion (2010) A-fib (2010) Schatzki's ring Avascular necrosis Bladder cystocele GERD (gastroesophageal reflux disease) Osteoarthritis Iron (Fe) deficiency anemia Surgical History (Updated 08/13/24 @ 10:50 by Jahaira Bey RN) History of carpal tunnel release of both wrists History of total right knee replacement (2008) History of total left hip arthroplasty (04/2019) Hx of bladder repair surgery Hx of cholecystectomy History of total right hip arthroplasty (12/2013) Social History household members: spouse Smoking Status: Never smoker alcohol intake: current Assessment & Plan Time-Based Coding :: [TOTAL MINUTES] spent with patient and on the chart (including review of chart, obtaining history, exam, reviewing outside data, placing orders, documenting exam and treatment plan, and counseling patient) on [DATE]. Quality VTE Deep Vein Thrombosis/Pulmonary Embolism Present on Admission: No
== END 2024-08-28 11:18 | disposition home or self-care (01) | DRG 467 ==
PROVIDERS: Nurse Anesthetist, Certified Registered; Physician Assistant; Admitting Provider Orthopaedic Surgery Adult Reconstructive Orthopaedic Surgery; PCP Family Medicine; Referring Provider Orthopaedic Surgery; Visit Provider Orthopaedic Surgery Adult Reconstructive Orthopaedic Surgery
PROC: 0SR903A Replacement of Right Hip Joint with Ceramic Synthetic Substitute, Uncemented, Open Approach (ICD-10-PCS; principal; 2024-08-25 10:45)
DX: T84.030A Mechanical loosening of internal right hip prosthetic joint, initial encounter (principal); D62 Acute posthemorrhagic anemia; T84.060A Wear of articular bearing surface of internal prosthetic right hip joint, initial encounter; Y79.2 Prosthetic and other implants, materials and accessory orthopedic devices associated with adverse incidents; K21.9 Gastro-esophageal reflux disease without esophagitis; D50.9 Iron deficiency anemia, unspecified; Z87.39 Personal history of other diseases of the musculoskeletal system and connective tissue
CPT/HCPCS: 36415; 36430; 73502; 73503; 76000; 85014; 85018; 85025; 86850; 86900; 86901; 87070; 87075; 87077; 87176; 87205; 97535; C1776; P9016; C1713; J0690; J1171; J2250; J2274; J2405; J2704; J3010